=== PATIENT | female | born 1960 | race Caucasian/White ===

== ENCOUNTER 2017-05-23 05:59 | Day surgery (SDC) | payer MEDICAID, OTHER ==
[2017-05-23] MEDS ORDERED: Dextrose 5%-Lactated Ringers 1,000 ML IV SCH (06:30)
[2017-05-23] MEDS ORDERED: fentaNYL 100 MCG/2 ML SDV ONE (06:55)
[2017-05-23] MEDS ORDERED: Midazolam 1 MG/ML 2 ML SDV ONE (06:55)
[2017-05-23] MEDS ORDERED: Propofol 200 MG/20 ML SDV ONE (06:55)
--- NOTE | 2017-05-26 09:43 | OR ---
DATE OF PROCEDURE: 05/23/2017 PREOPERATIVE DIAGNOSIS: Upper abdominal pain with probable gastroesophageal reflux disease. POSTOPERATIVE DIAGNOSES: 1. Ulcerative gastroesophageal reflux disease with moderate size hiatal hernia. 2. Erosive antral gastritis. OPERATIVE PROCEDURES: 1. Upper GI endoscopy with: a. Biopsies of esophagogastric junction for histologic evaluation. b. Biopsies of antrum for CLOtest. ANESTHESIA: IV sedation. INDICATION FOR PROCEDURE: This is a 56-year-old female presenting with worsening gastroesophageal reflux symptoms, along with some epigastric pain. Presently she is on Nexium 20 mg a day. Plan is to proceed with upper GI endoscopy with biopsies as indicated. Potential risks of the procedure including bleeding and perforation were discussed, and the patient wishes to proceed. DETAILS OF PROCEDURE: The patient was taken to the operating room and placed in a left lateral decubitus position. IV sedation was administered, after which the upper GI endoscope was passed orally through the length of the esophagus and into the stomach with retroflexion view of the fundus, and thereafter through the pyloric channel and into the proximal duodenum. The findings included normal hypopharynx, larynx, upper esophageal sphincter, and esophageal body. At the EG junction, the patient was noted to have a roughly 3 to 4 cm hiatal hernia and quite actively ulcerated gastroesophageal reflux disease, this was not associated with any plaquing or stricturing or other signs of neoplasia. Within the stomach, the retroflexion revealed the hiatal hernia. Otherwise, the patient has some antral gastritis with some scattered erosions. These were covered with fibrinous exudate and not presently bleeding. The pyloric channel and duodenum in the junction of the third and fourth portions were unremarkable. At this point, biopsy was taken from the antrum and sent for CLOtest for H. pylori. Multiple biopsies were then obtained from esophagogastric junction and sent for histologic evaluation. No bleeding from the biopsy sites was seen and the procedure then concluded. The patient was taken to the recovery room in satisfactory condition. We will have the patient continue her present medical management, plus adding Carafate 1 g p.o. q.i.d., and we will see the patient back for a followup on 05/28/2017. The patient is morbidly obese with a BMI of 50 and would appear, at this point, to have a gastroesophageal reflux disease that is refractory to medical management. The options at this point would be a proximal gastrectomy with a Yunior- en-Y reconstruction versus Cheryl fundoplication. Those 2 options will be reviewed with the patient at her upcoming appointment. Reji Earl MD /[id number]
== END 2017-05-23 09:15 | disposition home or self-care (01) ==
LOC: JP.SDS 05:59
PROVIDERS: ATTEND Surgery
DX: K29.50 Unspecified chronic gastritis without bleeding (principal); K44.9 Diaphragmatic hernia without obstruction or gangrene; K21.9 Gastro-esophageal reflux disease without esophagitis; K25.9 Gastric ulcer, unspecified as acute or chronic, without hemorrhage or perforation; I10 Essential (primary) hypertension; G47.33 Obstructive sleep apnea (adult) (pediatric); Z88.0 Allergy status to penicillin
CPT/HCPCS: 43239; 87081; J2250; J2704; J3010; J7042; 88305